=== PATIENT | female | born 1970 | race Asian ===

== ENCOUNTER 2022-05-14 15:47 | Emergency (ER) | payer OTHER ==
[~2022-05-14] VITALS: Ht 162.6 cm; Wt 74.8 kg
[2022-05-14 16:54] LABS: PLATELET COUNT 679 K/uL (152-353)
[2022-05-14 17:01] LABS: POTASSIUM 3.5 mmol/L (3.6-5.2)
[2022-05-14 18:45] VITALS: BP 147/86; TEMP 98.7
== END 2022-05-14 18:45 | disposition home or self-care (01) ==
LOC: ED 15:47
PROVIDERS: Emergency Medicine Emergency Medical Services
DX: T81.31XA Disruption of external operation (surgical) wound, not elsewhere classified, initial encounter (principal); Y83.8 Other surgical procedures as the cause of abnormal reaction of the patient, or of later complication, without mention of misadventure at the time of the procedure; Y92.89 Other specified places as the place of occurrence of the external cause
CPT/HCPCS: 80048; 81002; 85007; 85027; 87070; 87077; 87186; 87205; 96360; 96365; 99284; J0696